=== PATIENT | female | born 1975 | race Caucasian/White ===

== ENCOUNTER 2017-04-24 08:19 | Emergency (ER) | payer SELFPAY ==
[2017-04-24 08:39] LABS: Urine Bilirubin Negative (NEGATIVE); Urine Blood 50 /ul (NEGATIVE); Urine Ketone Negative (NEGATIVE); Urine Nitrite Negative (NEGATIVE); Urine Protein 15 mg/dL (NEGATIVE); Urine Specific Gravity >=1.030 SP.GR. (1.005-1.010); Urine Urobilinogen Normal (NORMAL)
[2017-04-24 09:01] LABS: Urine Appearance Cloudy; Urine Bacteria 1+; Urine Color Yellow; Urine RBC None Seen /hpf (0-5); Urine WBC 0-5 /hpf (0-5)
--- NOTE | 2017-04-24 09:47 | ERNOTE ---
Back Pain ER HPI Presenting Symptoms: injury/pain to back Time Seen by Provider: 04/24/17 09:35 Source: patient Exam Limitations: no limitations Immunizations: IMMUNIZATION HX Immunizations Up to Date Yes History of Influenza Vaccine No Allergies/Adverse Reactions: Allergies No Known Allergies Allergy (Unverified 04/24/17 08:28) Home Medications: HOME MEDICATIONS Ciprofloxacin HCl [Cipro] 500 mg PO BID #14 tab 04/24/17 [Last Taken Unknown] Ketorolac Tromethamine [Toradol] 10 mg PO Q6H PRN #10 tab 04/24/17 [Last Taken Unknown] Ondansetron [Zofran Odt] 4 mg PO Q4H PRN #10 tab 04/24/17 [Last Taken Unknown] oxyCODONE HCL/ACETAMINOPHEN [Percocet 5 MG/325 MG] 1 tab PO Q4H PRN #10 tab [Last Taken Unknown] Narrative: Patient started with back pain two days ago, denies any injury, no aggravating factors pain waxes and wanes without clear correlation, was severe this morning. She denies any urinary symptoms, had lower abdominal fullness feeling a couple days ago, no real pain, no dysuria or frequency, regular periods, not sexually active Date (Duration): 04/22/17 Timing: Reports: intermittent Quality/Severity: Reports: mild Activities at Onset: Reports: none Recent Injury?: Reports: no Modifying Factors - (Improves): Reports: nothing Modifying Factors - (Worsens): Reports: nothing Associated Symptoms: Reports: fever/chills Prior Treament: Reports: similar symptoms before - 14 years ago when , no definite diagnosis at that time Review of Systems - Review of Systems Constitutional: Present: chills. Absent: recent illness, fever EYE: Absent: vision changes ENT: Absent: nose congestion, sore throat Respiratory: Absent: shortness of breath, cough Cardiology: Absent: chest pain Gastrointestinal/Abdominal: Present: vomiting - once with severe pain this am. Absent: nausea Genitourinary: Absent: frequency, dysuria Musculoskeletal: Present: See HPI, back pain Neurological: Absent: headache, weakness, numbness - Patient's Past Medical History Patient History - Medical: No pertinent hx Patient History - Cardiac/Respiratory: No pertinent hx Patient History - Cancer: No Hx of Cancer Patient History - Surgical Procedures: T & A Patient History - Other: None LMP (females 10-50): 3 weeks - Social History Living Situations: home Psych History: No pertinent hx Smoking Status: Current every day smoker Alcohol Use: rarely Drug Use: none - Immunizations Immunizations Up to Date: Yes History of Influenza Vaccine: No Physical Exam - Physical Exam General Appearance: Present: wd/wn, alert, no apparent distress, obese Ears, Nose, Throat: Present: normal pharynx Respiratory: Present: no respiratory distress, normal breath sounds, no accessory muscle use, lungs clear Cardiovascular/Chest: Present: regular rate, rhythm, no murmur Gastrointestinal/Abdominal: Present: normal bowel sounds, nontender, nondistended, soft Back Exam: Present: normal inspection, normal range of motion, no CVA tenderness , no vertebral tenderness. Absent: muscle spasm Neurological Exam: Present: alert, oriented, normal mood/affect, no motor/ sensory deficits Skin Exam: Present: normal color, warm/dry ED Progress - Results and Orders Patient's Lab Results:: I have reviewed the patient's lab results. - Vital Signs Patient's Vital Signs:: I have reviewed the patient's vital signs. Vital Signs: Vital Signs 04/24/17 08:24 Temperature 35.6 C L Pulse Rate 81 Respiratory 16 Rate Blood Pressure 141/90 O2 Sat by Pulse 99 Oximetry - CT/Ultrasound CT/Ultrasound Narrative: CT abdomen pelvis: stone at the UVJ , pelvic mass U/S: masses on uterus (possible fibroids, cannot rule out other ethiology), right ovary not visualized - Progress/Reassessment Chief Complaint: Back Pain Progress Note-Subjective: 04/24/17 10:01 discussed lab results, will get CT to look for kidney stone 04/24/17 11:[address] with radiologist 04/24/17 11:28 discussed test results with patient, will get ultrasound to evaluate pelvic mass before referral to urologist, patient has minimal pain currently 04/24/17 13:03 discussed u/s results with patient, she states that she was diagnosed with fibroids in the past, last ultrasound with her last nine years ago, she has not had any follow up since Pain has recurred, she just received toradol for pain 04/24/17 13:[address] Hylton, will see her in the morning in his office in [place] , flomax, start on cipro and give po toradol 04/24/17 13:24 patient's pain better, discussed plan Departure Clinical Impression: Renal colic on left side, Uterine neoplasm - Departure Disposition: Home Follow Up Needed Condition: Stable Instructions: Renal Colic, [id number], Form - Excuse from Work, School, or Physical Activity, Pelvic Mass Additional Instructions: go to Dr Hylton office (at [facility])tomorrow at 07:30, do not have anything to eat or drink after midnight Referrals: Warner Norris MD [Associate] - Prescriptions: Ciprofloxacin HCl [Cipro] 500 mg PO BID #14 tab Ketorolac Tromethamine [Toradol] 10 mg PO Q6H PRN #10 tab PRN Reason: Pain Ondansetron [Zofran Odt] 4 mg PO Q4H PRN #10 tab PRN Reason: Nausea And Vomiting oxyCODONE HCL/ACETAMINOPHEN [Percocet 5 MG/325 MG] 1 tab PO Q4H PRN #10 tab PRN Reason: Pain
[2017-04-24] MEDS ORDERED: KETOROLAC TROMETHAMINE 60 MG/2 ML VIAL IM ONE ×2 (12:31→12:34)
[2017-04-24 13:43] VITALS: BP 134/92
== END 2017-04-24 13:35 | disposition home or self-care (01) ==
LOC: ER 08:19
DX: N23 Unspecified renal colic (principal); D49.59 Neoplasm of unspecified behavior of other genitourinary organ

== ENCOUNTER 2017-04-30 11:22 | Day surgery (SDC) | payer SELFPAY ==
[2017-04-30] MEDS ORDERED: RINGER'S SOLUTION,LACTATED 1,000 ML IV ONE ×2 (12:12→14:05)
--- NOTE | 2017-04-30 14:16 | OR ---
Operative Report - Dictated Report Narrative: Location: Main OR Anesthesia: General Preoperative diagnosis: Left proximal ureteral stone(s) Postoperative diagnosis: same Procedure: #1 left ESWL Indications: 41-year-old female proximally 1 cm left ureteral calculus proximally. Visible on KUB. Given trial of passage without success. We discussed options and elected to proceed with above-mentioned procedure. Wanted to avoid stent so plan was if stone became invisible during treatment not to stent each was the case. Understands May need one emergently afterwards gets into trouble Procedure: Consent obtained. Risks discussed. Brought to the operating room where general endotracheal anesthesia was induced. Timeout taken per protocol. Fluoroscopy was used to localize the stones in 2 planes. A total of 3000 shocks were delivered at a maximal energy of 26 kV. Stone was visible at the beginning of the case. It became invisible at the conclusion of the case. EBL: 0 cc Specimen: None Condition: Patient tolerated Important findings: Left proximal stone successfully treated. No stent. Follow Up: 2 weeks with KUB. We'll go over dietary recommendations. If gets into trouble sooner, may need stent emergently
[2017-04-30 15:50] VITALS: BP 152/86
== END 2017-04-30 11:23 | disposition home or self-care (01) ==
LOC: AMB 11:22
PROVIDERS: ATTEND Urology
PROC: 0TF7XZZ Fragmentation in Left Ureter, External Approach (ICD-10-PCS; principal; 2017-04-30)
DX: N20.1 Calculus of ureter (principal); E66.01 Morbid (severe) obesity due to excess calories; Z68.41 Body mass index [BMI] 40.0-44.9, adult